=== PATIENT | female | born 1965 | race Hispanic/Latino ===

== ENCOUNTER 2020-01-31 14:27 | Emergency (ER) | payer SELFPAY | END 2020-01-31 15:02 | disposition home or self-care (01) | LOC: ERS 14:27 | DX: R56.9 Unspecified convulsions (principal); R03.0 Elevated blood-pressure reading, without diagnosis of hypertension; I10 Essential (primary) hypertension; F41.9 Anxiety disorder, unspecified; F43.10 Post-traumatic stress disorder, unspecified; E78.00 Pure hypercholesterolemia, unspecified; Z76.0 Encounter for issue of repeat prescription; Z79.899 Other long term (current) drug therapy | CPT/HCPCS: 99283 ==